=== PATIENT | female | born 1960 | race Hispanic/Latino ===

== ENCOUNTER → 2019-06-21 | Outpatient (CLI) | payer OTHER ==
[~2019-06-21] MED LIST: IRON-15 PO; LEVO100T12 PO; LISI10TA7 PO
== END | disposition home or self-care (01) ==
LOC: RAH 15:37
PROVIDERS: ATTEND Family Medicine
DX: Z12.31 Encounter for screening mammogram for malignant neoplasm of breast (principal)
CPT/HCPCS: 77067